=== PATIENT | female | born 1985 ===

== ENCOUNTER 2017-10-26 17:29 | Emergency (ER) | payer SELFPAY ==
[2017-10-26 18:22] VITALS: BP 124/73; PULSE 73; RESP 18; TEMP 97.9; O2SAT 99
--- NOTE | 2017-10-26 19:27 | ED PDOC ---
HPI: CCC, URI, Sore Throat Time Seen by Provider: 10/26/17 18:30 Chief Complaint (Nursing): Flu-like Symptoms Chief Complaint (Provider): Cough History Per: Patient History/Exam Limitations: no limitations Onset/Duration Of Symptoms: Days (x4) Current Symptoms Are (Timing): Still Present Additional Complaint(s): Patient reports 4 days of body aches, cough, runny nose, and nausea. Otherwise : (-) sore throat, (-) fever, (-) chills, (-) headache, (-) dizziness, (-) vomiting, (-) diarrhea, (-) shortness of breath, (-) chest pain, (-) recent travel, (-) sick contacts. PMD: Dr. Lorena Celis Past Medical History Reviewed: Historical Data, Nursing Documentation, Vital Signs Vital Signs: Last Vital Signs Temp 97.9 F 10/26/17 18:20 Pulse 73 10/26/17 18:20 Resp 18 10/26/17 18:20 BP 124/73 10/26/17 18:20 Pulse Ox 99 10/26/17 19:34 - Medical History PMH: Kidney Stones (when she was ) - Family History Family History: States: Unknown Family Hx - Social History Current smoker - smoking cessation education provided: No Alcohol: None Drugs: Denies - Immunization History Hx Tetanus Toxoid Vaccination: No Hx Influenza Vaccination: No Hx Pneumococcal Vaccination: No - Home Medications Home Medications: Ambulatory Orders Medication Instructions Recorded Acetaminophen [Tylenol 325mg tab] 650 mg PO Q4 01/04/16 Ciprofloxacin [Cipro] 250 mg PO BID #6 tab 01/04/16 Naproxen [Naprosyn] 500 mg PO BID PRN #20 tablet 01/04/16 Oseltamivir Phosphate [Tamiflu] 75 mg PO BID #10 cap 01/04/16 Ibuprofen [Motrin] 1 tab PO Q8 PRN #21 tab 11/08/16 Penicillin VK [Pen-Vee K] 1 tab PO QID #40 tab 11/08/16 Nitrofurantoin Macrocrystals 100 mg PO BID #14 cap 12/10/16 [Macrobid] Guaifenesin 400 mg PO QID #20 tablet 10/26/17 Ibuprofen [Motrin Tab] 600 mg PO QID PRN #20 tab 10/26/17 Oseltamivir Phosphate [Tamiflu] 75 mg PO BID #10 capsule 10/26/17 - Allergies Allergies/Adverse Reactions: Allergies Allergy/AdvReac Type Severity Reaction Status Date / Time Penicillins Allergy RASH Verified 12/09/16 20:11 Review of Systems ROS Statement: Except As Marked, All Systems Reviewed And Found Negative Constitutional: Positive for: Other (Body aches). Negative for: Fever, Chills ENT: Positive for: Nose Discharge. Negative for: Throat Pain Cardiovascular: Negative for: Chest Pain Respiratory: Positive for: Cough. Negative for: Shortness of Breath Gastrointestinal: Positive for: Nausea. Negative for: Vomiting, Diarrhea Neurological: Negative for: Headache, Dizziness Physical Exam - Reviewed Nursing Documentation Reviewed: Yes Vital Signs Reviewed: Yes - Physical Exam Comments: GENERAL APPEARANCE: Patient is awake, alert, oriented x 3, in no acute distress. SKIN: Warm, dry; (-) cyanosis, (-) rash. EYES: (-) conjunctival pallor, (-) scleral icterus, (-) conjunctival hemorrhage. ENMT: Mucous membranes moist. TMs: (-) erythema. Airway patent: (-) stridor. Pharynx: (-) erythema, (-) exudate. NECK: (-) tenderness, (-) stiffness, (-) meningismus, (-) lymphadenopathy. CHEST AND RESPIRATORY: (-) accessory muscle use. Lungs: (-) rales, (-) rhonchi, (-) wheezes, (-) rub; breath sounds equal bilaterally. HEART AND CARDIOVASCULAR: (-) irregularity; (-) murmur, (-) gallop, (-) rub. ABDOMEN AND GI: Soft; (-) tenderness, (-) guarding; (-) organomegaly; (-) mass ; (-) CVA tenderness. EXTREMITIES: (-) deformity; (-) cellulitis, (-) lymphangitis; (-) subungual hemorrhage; (-) edema. NEURO AND PSYCH: Mental status as above; (-) focal findings. - ECG O2 Sat by Pulse Oximetry: 99 (RA) Pulse Ox Interpretation: Normal Medical Decision Making Medical Decision Making: Initial Impression: URI, likely viral illness Diagnosis of upper respiratory infection, likely viral, d/w patient. Tamiflu prescription given in addition to Motrin and Robitussin. Advised patient that if she develops fever, start taking the Tamiflu along with Motrin and Tylenol. Advised to follow up with primary care physician in 1-2 days without fail. Advised to take medication as prescribed. Return to the emergency room at any time for any new or worsening symptoms. Patient states she fully agrees with and understands discharge instructions. States that she agrees with the plan and disposition. Verbalized and repeated discharge instructions and plan. I have given the patient opportunity to ask any additional questions. Scribe Attestation: Documented by Alena Zendejas, acting as a scribe for Mansi Almaraz PA-C Provider Scribe Attestation: All medical record entries made by the Scribe were at my direction and personally dictated by me. I have reviewed the chart and agree that the record accurately reflects my personal performance of the history, physical exam, medical decision making, and the department course for this patient. I have also personally directed, reviewed, and agree with the discharge instructions and disposition. Disposition - Clinical Impression Clinical Impression: URI (upper respiratory infection) - Patient ED Disposition Is Patient to be Admitted: No Counseled Patient/Family Regarding: Diagnosis, Need For Followup, Rx Given - Disposition Referrals: [facility] [Outside] Disposition: Routine/Home Disposition Time: 19:15 Condition: STABLE Additional Instructions: Thank you for letting us take care of you today. You were treated for URI, viral illness. The emergency medical care you received today was directed at your acute symptoms. If you were prescribed any medication, please fill it and take as directed. It may take several days for your symptoms to resolve. Return to the Emergency Department if your symptoms worsen, do not improve, or if you have any other problems. Please contact your doctor in 2 days for re-evaluation and follow up / or call one of the physicians/clinics you have been referred to that are listed on the Patient Visit Information form that is included in your discharge packet. Bring any paperwork you were given at discharge with you along with any medications you are taking to your follow up visit. Our treatment cannot replace ongoing medical care by a primary care provider (PCP) outside of the emergency department. Thank you for allowing the [facility] team to be part of your care today. Prescriptions: Guaifenesin 400 mg PO QID #20 tablet Ibuprofen [Motrin Tab] 600 mg PO QID PRN #20 tab PRN Reason: Pain, Moderate (4-7) Oseltamivir Phosphate [Tamiflu] 75 mg PO BID #10 capsule Instructions: Viral Upper Respiratory Infection, Adult (DC) Forms: [employer] (Togolese), [facility] ED School/Work Excuse - POA Present On Arrival: None - PA / AMF MECHANIC / Resident Statement MD/DO has reviewed & agrees with the documentation as recorded.
== END 2017-10-26 20:50 | disposition home or self-care (01) ==
LOC: H.ER 17:29
DX: J06.9 Acute upper respiratory infection, unspecified (principal); Z88.0 Allergy status to penicillin